=== PATIENT | female | born 1970 | race Caucasian/White ===

== ENCOUNTER 2018-03-06 17:48 | Emergency (ER) | payer OTHER ==
--- NOTE | 2018-03-06 18:10 | PDOC ---
Rapid Medical Evaluation Time Seen by Provider: 03/06/18 18:02 Medical Evaluation: Allergies Allergy/AdvReac Type Severity Reaction Status Date / Time No Known Allergies Allergy Verified 06/14/15 07:15 03/06/18 18:03 I have performed a brief in-person evaluation of this patient. The patient presents with a chief complaint of: pruritic rash to face and b/l UEs since yesterday. Used topical hydrocortisone on face last night and noticed that face appeared more red and swollen this am. Last took 10 ml liquid benadryl at 12noon w/ no sig relief. No angioedema or sob. No known drug/food/ environmental allergies Pertinent physical exam findings:increased erythema/swelling to b/l cheeks/nose/ forehead I have ordered the following:nothing The patient will proceed to the ED for further evaluation. Discharge Disposition - Diagnosis Hives - Referrals Referrals: Chandler Garcia MD [Primary Care Provider] - - Patient Instructions - Post Discharge Activity
[2018-03-06 18:11] VITALS: BP 135/75; PULSE 67; TEMP 98.7; BMI 24.7
[2018-03-06] MEDS ORDERED: predniSONE 20 MG TABLET (UD) PO ONE (18:38)
[2018-03-06] MEDS ORDERED: RANITIDINE HCL 150 MG TABLET (FP) PO ONE (18:38)
[2018-03-06] MEDS ORDERED: predniSONE 20 MG TABLET (UD) ONE (18:43)
[2018-03-06] MEDS ORDERED: RANITIDINE HCL 150 MG TABLET (FP) ONE (18:43)
--- NOTE | 2018-03-06 18:43 | PDOC ---
History of Present Illness - General Chief Complaint: Rash Stated Complaint: ALLERGIC REACTON Time Seen by Provider: 03/06/18 18:02 History Source: Patient Exam Limitations: No Limitations - History of Present Illness Initial Comments: 03/09/18 12:33 47 yr female history of IDDM with rash to arms and face started yesterday, getting worse. no diff breathing or speaking. pt applied a topical sunscreen to her shoulders prior to rash. Timing/Duration: reports: getting worse Severity: Yes: moderate Location: reports: face Past History - Past Medical History Allergies/Adverse Reactions: Allergies Allergy/AdvReac Type Severity Reaction Status Date / Time No Known Allergies Allergy Verified 03/06/18 18:04 Home Medications: Ambulatory Orders Insulin Glargine,Hum.rec.anlog [Lantus Solostar PEN -] 16 units SQ HS 06/14/15 Insulin Lispro [Humalog] 0 unit SQ ASDIR 06/14/15 Prednisone [Deltasone] 40 mg PO DAILY #8 tablet 03/06/18 Ranitidine HCl [Zantac] 150 mg PO DAILY #10 tablet 03/06/18 Anemia: No Asthma: No Cancer: No COPD: No Diabetes: Yes (TYPE 1) - Surgical History Abdominal Surgery: Yes (umbilical hernia) Appendectomy: No Cardiac Surgery: No Cholecystectomy: No - Suicide/Smoking/Psychosocial Hx Smoking Status: No Smoking History: Never smoked Number of Cigarettes Smoked Daily: 0 Hx Alcohol Use: No Drug/Substance Use Hx: No Substance Use Type: None Hx Substance Use Treatment: No *Physical Exam - Vital Signs Last Vital Signs Temp Pulse Resp BP Pulse Ox 98.7 F 67 19 135/75 100 03/06/18 18:04 03/06/18 18:04 03/06/18 18:04 03/06/18 18:04 03/06/18 18:04 - Physical Exam General Appearance: Yes: Nourished, Appropriately Dressed HEENT: positive: EOMI, ZAK Neck: positive: Supple. negative: Tender, Lymphadenopathy (R), Lymphadenopathy (L) Respiratory/Chest: positive: Lungs Clear, Normal Breath Sounds Cardiovascular: positive: Regular Rhythm, Regular Rate Musculoskeletal: positive: Normal Inspection Integumentary: positive: Dry, Warm, Rash (shoulders and upper arms with maculopapular erythematous rash, face with swelling, red rash ) Neurologic: positive: Fully Oriented, Alert, Normal Mood/Affect, Normal Response , Motor Strength /5 Medical Decision Making - Medical Decision Making 03/09/18 12:49 cc: rash/allergic reaction no resp distress or diff swallowing will give short course steroids , pt willl monitor her blood sugars will give benadryl and zantac strict follow up with PMD pt and her agree with the plan of care. *DC/Admit/Observation/Transfer Diagnosis at time of Disposition: Allergic reaction Qualifiers: Encounter type: initial encounter Qualified Code(s): T78.40XA - Allergy, unspecified, initial encounter - Discharge Dispostion Disposition: HOME Condition at time of disposition: Good - Prescriptions Prescriptions: Prednisone [Deltasone] 40 mg PO DAILY #8 tablet Ranitidine HCl [Zantac] 150 mg PO DAILY #10 tablet - Referrals Referrals: Chandler Garcia MD [Primary Care Provider] - - Patient Instructions Additional Instructions: take Benadryl 25-50mg at bedtime take claritin daily in the morning with the prednisone you can take the zantac as well in the morning cool water to face and arms avoid sun , pool until symptoms have improved apply Aveeno or Aquaphor to dry itchy skin if any worsening symptoms return to the ER please follow with your doctor next week if symptoms continue - Post Discharge Activity
== END 2018-03-06 18:46 | disposition home or self-care (01) ==
LOC: JERFT 17:48 → JER 17:48 → JERFT 18:46
DX: L50.0 Allergic urticaria (principal); T78.49XA Other allergy, initial encounter; E10.9 Type 1 diabetes mellitus without complications; Z79.4 Long term (current) use of insulin
CPT/HCPCS: 99281-25